=== PATIENT | male | born 1980 | race Caucasian/White ===

== ENCOUNTER 2017-01-17 10:44 | Inpatient (IN) | payer OTHER ==
[~2017-01-17] VITALS: Ht 180.3 cm; Wt 75.0 kg
[~2017-01-17 10:44] MED LIST: ACYCLOVIR400 MG PO; ALLEGRA60 M2 PO; FLEXERIL10 MG PO; KEFLEX500 MG PO; MOTRIN800 MG PO; VICODIN 5/500 505 MG PO
[2017-01-17 10:50] VITALS: BP 160/97
[2017-01-17 11:25] LABS: BASO # 0.1 10*3/uL (0.0-0.1); BASO % 0.6 % (0.0-1.0); HEMATOCRIT 39.6 % (42.0-52.0); HEMOGLOBIN 13.9 g/dl (14.0-18.0); LYMPH % 12.3 % (27.0-41.0); MEAN CELL VOLUME 92.1 fl (80.0-94.0); MEAN CORPUSCULAR HGB 32.3 pg (27.0-31.0); MEAN CORPUSCULAR HGB CONC 35.1 g/dl (33.0-37.0); MEAN PLATELET VOLUME 10.8 fl (9.6-12.3); MONO # 0.4 10*3/uL (0.1-1.0); MONO % 5.2 % (3.0-9.0); NEUT # 6.6 10*3/uL (2.3-7.9); NEUT % 81.5 % (47.0-73.0); PLATELET COUNT AUTOMATED 256 10*3/uL (130-400); RED CELL DISTRI WIDTH 11.7 % (0-14.5); WHITE BLOOD COUNT 8.1 10*3/uL (4.8-10.8)
[2017-01-17 11:43] LABS: ALBUMIN 3.9 gm/dl (3.1-4.5); ALKALINE PHOSPHATASE 59 U/L (45-117); BILIRUBIN, TOTAL 0.8 mg/dl (0.2-1.0); BUN 12 mg/dl (7-24); CARBON DIOXIDE 22 mmol/L (21-32); CHLORIDE 107 mmol/L (98-107); EST GLOM FILT AFRICAN AMERICAN > 60 ml/min; GLUCOSE 133 mg/dL (65-99); POTASSIUM 3.7 mmol/L (3.5-5.1); SGOT/AST 12 IU/L (3-35); SGPT/ALT 20 U/L (12-78); SODIUM 139 mmol/L (136-145); TOTAL PROTEIN 7.2 gm/dL (6.4-8.2)
[2017-01-17 11:44] VITALS: BP 132/77
[2017-01-17 11:55] VITALS: BP 141/99
[2017-01-17 13:10] LABS: BILIRUBIN NEGATIVE (NEGATIVE); BLOOD NEGATIVE (NEGATIVE); CLARITY CLOUDY (CLEAR); COLOR YELLOW (YELLOW); GLUCOSE NEGATIVE (NEGATIVE); KETONE 1+ (NEGATIVE); LEUKO ESTERASE NEGATIVE (NEGATIVE); NITRITE NEGATIVE (NEGATIVE); PH 8.5 (5.0-9.0); PROTEIN 1+ (NEGATIVE); SPECIFIC GRAVITY 1.015 (1.005-1.030)
[2017-01-17 13:14] LABS: BACTERIA 1+; URINE REFLEX COMMENT NO (NO); WBC 0-2 wbc/hpf (0-5)
[2017-01-17 13:21] LABS: URINE AMPHETAMINES < 1000 (1000ng/ml); URINE BARBITURATES < 200 (200ng/ml); URINE COCAINE < 300 (300ng/ml)
[2017-01-17 16:35] VITALS: BP 148/93
[2017-01-17 20:35] VITALS: BP 127/79
[2017-01-18] VITALS: BP 129/70
[2017-01-18 04:00] VITALS: BP 118/61
[2017-01-18 08:00] VITALS: BP 128/80
[2017-01-18 12:00] VITALS: BP 128/90
[2017-01-18 16:00] VITALS: BP 109/72
[2017-01-18 20:00] VITALS: BP 108/79
[2017-01-19] VITALS: BP 111/68
[2017-01-19 08:00] VITALS: BP 121/66
[2017-01-19] MEDS ORDERED: ZOFRAN 4 MG ED2 TAB PO (11:52)
[2017-01-19 12:00] VITALS: BP 122/78
== END 2017-01-19 12:40 | disposition home or self-care (01) | DRG 897 ==
LOC: ED 10:44 → 4E 11:22 → EDHOLD 11:22 → 4E 11:25
PROVIDERS: Internal Medicine; Internal Medicine Nephrology; Student in an Organized Health Care Education/Training Program
DX: F11.23 Opioid dependence with withdrawal (principal); A60.00 Herpesviral infection of urogenital system, unspecified; F41.9 Anxiety disorder, unspecified; K21.9 Gastro-esophageal reflux disease without esophagitis

== ENCOUNTER 2017-06-09 17:05 | Inpatient (IN) | payer SELFPAY ==
[~2017-06-09] VITALS: Ht 180.3 cm; Wt 68.9 kg
[~2017-06-09 17:05] MED LIST changes: +ZOFRAN 4 MG ED2 TAB PO
[2017-06-09 17:35] VITALS: BP 119/89
[2017-06-09 18:03] LABS: BASO % 0.5 % (0.0-1.0); EOS # 0.1 10*3/uL (0.0-0.4); EOS % 0.8 % (1.0-4.0); HEMATOCRIT 46.5 % (42.0-52.0); HEMOGLOBIN 15.7 g/dl (14.0-18.0); LYMPH # 1.9 10*3/uL (1.3-4.4); LYMPH % 28.9 % (27.0-41.0); MEAN CELL VOLUME 91.4 fl (80.0-94.0); MEAN CORPUSCULAR HGB 30.8 pg (27.0-31.0); MEAN CORPUSCULAR HGB CONC 33.8 g/dl (33.0-37.0); MEAN PLATELET VOLUME 10.8 fl (9.6-12.3); MONO # 0.5 10*3/uL (0.1-1.0); MONO % 7.2 % (3.0-9.0); NEUT # 4.1 10*3/uL (2.3-7.9); NEUT % 62.3 % (47.0-73.0); PLATELET COUNT AUTOMATED 293 10*3/uL (130-400); RED BLOOD COUNT 5.09 10*6/uL (4.50-5.90); RED CELL DISTRI WIDTH 11.8 % (0-14.5); WHITE BLOOD COUNT 6.6 10*3/uL (4.8-10.8)
[2017-06-09 18:21] LABS: ALBUMIN 4.5 gm/dl (3.1-4.5); ALKALINE PHOSPHATASE 67 U/L (45-117); BUN 17 mg/dl (7-24); CHLORIDE 103 mmol/L (98-107); CREATININE 1.19 mg/dL (0.70-1.30); POTASSIUM 3.8 mmol/L (3.5-5.1); SGOT/AST 14 IU/L (3-35); SGPT/ALT 30 U/L (12-78); SODIUM 139 mmol/L (136-145); TOTAL PROTEIN 8.2 gm/dL (6.4-8.2)
[2017-06-09 18:23] LABS: ACETAMINOPHEN (TYLENOL) < 2.0 ug/ml (10-30); ETHYL ALCOHOL < 3.0 mg/dl (<3); TROPONIN I < 0.015 ng/ml (<0.045)
[2017-06-09 18:33] LABS: BILIRUBIN NEGATIVE (NEGATIVE); BLOOD NEGATIVE (NEGATIVE); CLARITY CLEAR (CLEAR); COLOR YELLOW (YELLOW); GLUCOSE NEGATIVE (NEGATIVE); KETONE NEGATIVE (NEGATIVE); LEUKO ESTERASE NEGATIVE (NEGATIVE); NITRITE NEGATIVE (NEGATIVE); UROBILINOGEN 0.2 E.U./dl (0.2-1.0)
[2017-06-09 18:40] LABS: BACTERIA TRACE; EPITHELIAL CELLS 0-2; MUCOUS TRACE; RBC 0-2 rbc/hpf (0-2); WBC 0-2 wbc/hpf (0-5)
[2017-06-09 18:45] LABS: URINE AMPHETAMINES < 1000 (1000ng/ml); URINE BARBITURATES < 200 (200ng/ml); URINE BENZODIAZEPINES < 200 (200ng/ml); URINE CANNABINOIDS (THC) < 50 (50ng/ml); URINE COCAINE < 300 (300ng/ml); URINE METHADONE < 300 (300ng/ml); URINE OPIATES < 300 (300ng/ml); URINE PHENCYCLIDINE < 25 (25ng/ml)
--- NOTE | 2017-06-09 18:45 | NUR ---
36 year old MALE admitted to room # 424 for stabilization. Reports an addiction to HEROIN last used 24 hours prior to admission. Compliant with admission procedure. Patient denies any anxiety, but is unable to sit still, taps toes to floor continuously, looks about room, unable to focus eyes on nurse during interview. See assessment forms for additional information about patient status.
--- NOTE | 2017-06-09 19:30 | NUR ---
PATIENT SITTING UP IN BED. PATIENT IS PLEASANT AND COOPERATIVE UPON INITIAL ASSESSMENT. PATIENT IS A&OX3 AND AMBULATORY W/O ASSIST. PATIENT DENIES N/V BUT HAD DIARRHEA PREVIOUS TO ADMISSION, HASN'T HAD AN EPISODE SINCE ADMITTED TO THE FLOOR. PATIENT VERBALIZES FEELING CHILLS AND SLIGHTLY SWEATY, BUT DENIES ANY CRAMPING, RESTLESSNESS, OR OTHER DT'S AT THIS TIME. WILL CONTINUE TO MONITOR, CALL LIGHT WITHIN REACH, HOB ELEVATED. SEE ASSESSMENT.
--- NOTE | 2017-06-09 19:50 | NUR ---
IN TO SEE PATIENT AND DISCUSS NV PROGRAM AND SUBUTEX TAPER/PRN MEDICATIONS.
[2017-06-09 20:00] VITALS: BP 126/87
--- NOTE | 2017-06-09 20:10 | NUR ---
PATIENT GIVEN ROBAXIN AND REQUIP PER PT REQUEST FOR LEG RESTLESSNESS AND CRAMPING. WILL CONTINUE TO MONITOR.
--- NOTE | 2017-06-09 20:10 | NUR ---
INITIAL SCHEDULED DOSE OF SUBUTEX GIVEN.
--- NOTE | 2017-06-09 22:00 | NUR ---
PATIENT GIVEN TRAZODONE PER PT REQUEST TO HELP THEM SLEEP. WILL CONTINUE TO MONITOR AND REASSESS.
--- NOTE | 2017-06-09 23:00 | NUR ---
TRAZODONE EFFECTIVE, PATIENT SLEEPING SOUNDLY IN BED.
[2017-06-10] VITALS: BP 116/69
--- NOTE | 2017-06-10 00:40 | NUR ---
PATIENT GIVEN 2ND DOSE TRAZODONE PER PT REQUEST DUE TO HAVING TROUBLE FALLING BACK ASLEEP. WILL CONTINUE TO MONITOR AND ASSESS.
[2017-06-10 04:00] VITALS: BP 114/72
--- NOTE | 2017-06-10 04:37 | NUR ---
SCHEDULED DOSE OF SUBUTEX GIVEN.
--- NOTE | 2017-06-10 07:06 | NUR ---
PATIENT WAS AWAKE MULTIPLE TIMES THROUGHOUT THE NIGHT AND HAD TOUBLE SLEEPING. PATIENT HAD NO VISUAL SYMPTOMS OF DT'S AND DENIED ANY CHILLS AFTER INITIAL ASSESSMENT. PATIENT DENIED ANY PAIN OR DISCOMFORT. PATIENT A&OX3 AND AMBULATORY. NO FURTHER REQUESTS AT THIS TIME. CALL LIGHT WITHIN REACH. SEE ASSESSMENT.
[2017-06-10 08:00] VITALS: BP 119/76
[2017-06-10 12:00] VITALS: BP 116/87
[2017-06-10 16:00] VITALS: BP 111/65
--- NOTE | 2017-06-10 17:06 | NUR ---
PT MEDICATED WITH PRN VISTARIL, BENTYL AND MOTRIN FOR RELIEF FROM SYMPTOMS RELATED TO WITHDRAWL. WILL CONTINUE TO MONITOR.
--- NOTE | 2017-06-10 19:30 | NUR ---
PATIENT RESTING IN BED. PATIENT DENIES ANY PAIN OR DISCOMFORT UPON ASSESSMENT. PATIENT DOES VERBALIZE OCCASIONAL SORENESS T/O WHOLE BODY. PATIENT ENCOURAGED TO TAKE HOT SHOWER WELL ASK FOR PRN MEDICATIONS TO HELP WITH S&S OF WITHDRAWALS. PATIENT IS A&OX3 AND AMBULATORY W/O ASSIST. NO FURTHER REQUESTS AT THIS TIME, CALL LIGHT WITHIN REACH. SEE SHIFT ASSESSMENT.
[2017-06-10 20:00] VITALS: BP 107/72
--- NOTE | 2017-06-10 20:45 | NUR ---
SCHEDULED DOSE OF SUBUTEX GIVEN.
[2017-06-11] VITALS: BP 111/68
--- NOTE | 2017-06-11 06:37 | NUR ---
PATIENT SLEPT THROUGHOUT THE NIGHT WITHOUT ANY TROUBLE. PATIENT DIDN'T REQUEST ANY PRN MEDS T/O THE NIGHT AND HAD NO C/O OR SIGNS OF DT'S THROUGHOUT SHIFT. PATIENT DENIES PAIN OR DISCOMFORT. CALL LIGHT WITHIN REACH. NO FURTHER REQUESTS AT THIS TIME. SEE ASSESSMENT.
[2017-06-11 08:00] VITALS: BP 92/67
--- NOTE | 2017-06-11 08:30 | NUR ---
Patient resting. Responding to scheduled medications with fewer complaints of pain and anxiety. Call light within reach.
[2017-06-11 12:00] VITALS: BP 108/60
--- NOTE | 2017-06-11 13:00 | NUR ---
PT UP WALKING THE HALLS, PT DENIES ANY NEEDS FOR ANY PRN MEDS. VISTARIL OFFERED, PT DENIED NEED.
[2017-06-11 16:00] VITALS: BP 125/83
--- NOTE | 2017-06-11 16:30 | NUR ---
MEDICATED WITH VISTARIL AND REQUIP FOR ANXIETY AND RESTLESS LEGS. WILL MONITOR FOR EFFECTIVENESS. CALL LIGHT WITHIN REACH.
--- NOTE | 2017-06-11 17:58 | NUR ---
Patient resting. Responding to earlier PRN medications with fewer complaints of restlessness and anxiety.
[2017-06-11 20:00] VITALS: BP 120/75
--- NOTE | 2017-06-11 20:23 | NUR ---
PATIENT RESTING IN BED WATCHING TV. DENIES ANY NEED FOR PRN MEDICATIONS AT THIS TIME. WILL MONITOR. BED IN LOWEST POSITION, CALL LIGHT IN REACH
[2017-06-12] VITALS: BP 110/63
--- NOTE | 2017-06-12 06:04 | NUR ---
PATIENT RESTING IN BED WITH NO S/S OF DISTRESS. BED IN LOWEST POSITION, CALL LIGHT IN REACH
--- NOTE | 2017-06-12 06:55 | NUR ---
PATIENT REFUSING BLOOD WORK.
[2017-06-12 08:00] VITALS: BP 100/62
--- NOTE | 2017-06-12 11:47 | NUR ---
PATIENT IS NOT APPROPRIATE FOR [facility] SERVICE DUE TO NOT HAVING [employer] INSURANCE. [facility] STAFF GAVE PATIENT A LIST OF AFTERCARE RESOURCES. [employer]
--- NOTE | 2017-06-12 13:11 | NUR ---
[facility] Discharge instructions reviewed with patient/family. Patient receptive and verbalizes understanding. Follow-up care arranged. Written instructions given to patient/family. KHADRA HENRIQUEZ
== END 2017-06-12 13:11 | disposition home or self-care (01) | DRG 897 ==
LOC: ED 17:05 → 4E 17:55 → EDHOLD 17:55 → 4E 18:03
PROVIDERS: Nurse Practitioner Family; ADMIT Emergency Medicine
DX: F11.23 Opioid dependence with withdrawal (principal); J34.89 Other specified disorders of nose and nasal sinuses; R73.9 Hyperglycemia, unspecified; R00.0 Tachycardia, unspecified

== ENCOUNTER 2019-11-09 17:15 | Emergency (ER) | payer OTHER ==
[~2019-11-09] VITALS: Ht 180.3 cm; Wt 77.1 kg
[2019-11-09 17:16] VITALS: BP 145/92
== END 2019-11-09 17:49 | disposition left against medical advice (07) ==
LOC: ED 17:15
DX: T50.901A Poisoning by unspecified drugs, medicaments and biological substances, accidental (unintentional), initial encounter (principal); F11.10 Opioid abuse, uncomplicated; R40.20 Unspecified coma; V49.9XXA Car occupant (driver) (passenger) injured in unspecified traffic accident, initial encounter; Y93.89 Activity, other specified; Y92.89 Other specified places as the place of occurrence of the external cause; Y99.8 Other external cause status